=== PATIENT | male | born 1960 | race Caucasian/White ===

== ENCOUNTER 2016-12-05 20:22 | Emergency (ER) | payer BC ==
[2016-12-05] MEDS ORDERED: BUPIVACAINE 0.5% PF 30 ML VIAL SUBQ STA (21:40)
--- NOTE | 2016-12-05 21:45 | ED Physician Documentation ---
History of Present Illness - Stated complaint Stated Complaint: RIGHT HAND LACERATION - Chief complaint Chief Complaint: Laceration - History obtained from History obtained from: Patient - Additonal information Additional information: Right [id number] male who cut his hand on a boat wench and sustained a laceration contusion to the volar aspect of the right hand just proximal to MCP joint. Review of systems: For pertinent positive and negatives in the review of systems please see history of present illness. Otherwise all other systems have been reviewed and are negative. Dragon disclaimer: Parts of this medical record were created using voice recognition technology. Because of the inherent limitations of this system occasional same sounding word substitutions do occur and persist despite proofreading. Please read the document for context. Review of Systems Cardiac: denies: Chest pain / pressure, Palpitations GI: reports: Abdominal Pain, Abdominal Swelling Musculoskeletal: reports: Extremity pain, Joint pain, Extremity swelling PD PAST MEDICAL HISTORY - Past Medical History Past Medical History: No - Past Surgical History Past Surgical History: Yes - Allergies Allergies/Adverse Reactions: Allergies Allergy/AdvReac Type Severity Reaction Status Date / Time sulfamethoxazole Allergy Unknown Verified 12/05/16 20:32 [From Bactrim] trimethoprim [From Bactrim] Allergy Unknown Verified 12/05/16 20:32 - Social History Does the pt smoke?: No Smoking Status: Never smoker Does the pt drink ETOH?: Yes Does the pt have substance abuse?: No - Immunizations Immunizations are current?: Yes - POLST Patient has POLST: No PD ED PE NORMAL - General General: Alert and oriented X 3, No acute distress, Well developed/nourished - Extremities Extremities: Other (Patient is a well-appearing 56-year-old male who presents with a complaint of pain and injury to the right hand. On examination he has a 2.5 cm laceration shaped like a W on the volar aspect just proximal to the metacarpophalangeal joint of the fifth finger. Tendon function is Is normal on testing of the superficialis and profundus testing. The distal tip of the finger appears normal there is no obvious bony abnormality seen.) Results - Vitals Vitals: Vital Signs - 24 hr 12/05/16 12/05/16 20:29 22:48 Temperature 36.0 C L 36.6 C Heart Rate 60 60 Respiratory 12 12 Rate Blood Pressure 145/96 H 140/86 H O2 Saturation 94 95 Oxygen O2 Source Room air PD MEDICAL DECISION MAKING - ED course ED course: Well-appearing man with a 2-1/2 cm laceration to the right volar hand. The hand was inspected neurovascularly it is intact. Radiographs showed no evidence of bony fracture or foreign body. The wound was anesthetized with 8 cc of Sensorcaine. It was then irrigated with a 18-gauge needle, syringe under pressure. It was closed using 7 single interrupted sutures of 4.0 Ethicon. His good approximation and hemostasis. The patient's tetanus is up-to-date at this point in time will be discharged home in improved condition. Disposition: To home Clinical impression 2.5 cm laceration right volar aspect of hand status post suture closure Departure - Departure Disposition: 01 Home, Self Care Clinical Impression: Laceration Condition: Good Instructions: ED Laceration Hand Follow-Up: Lucas Orlando MD [Primary Care Provider] -
[2016-12-05] MEDS ORDERED: BUPIVACAINE 0.5% PF 30 ML VIAL ONE (21:46)
--- NOTE | 2016-12-05 22:23 | XRAY Preliminary Report ---
Exam: XR Hand 3 View RT IMPRESSION: 1. No radiopaque foreign bodies. Soft tissue defect in the medial right hand. 2. No fracture. Normal alignment. [facility] SITE ID: [id number]
[2016-12-05 22:49] VITALS: BP 140/86
--- NOTE | 2016-12-05 22:59 | XRAY Report ---
EXAM: RIGHT HAND RADIOGRAPHY EXAM DATE: 12/05/2016 10:16 PM. CLINICAL HISTORY: Injury to 5th metacarpal. COMPARISON: None. TECHNIQUE: 3 views. FINDINGS: Bones: Normal. No fractures or bone lesions. Joints: Normal. No subluxations. Soft Tissues: Possible soft tissue defect in the medial volar aspect of the right hand. No radiopaque foreign bodies. IMPRESSION: 1. No radiopaque foreign bodies. Soft tissue defect in the medial right hand. 2. No fracture. Normal alignment. [facility] Referring Provider Line: [phone] SITE ID: [id number]
== END 2016-12-05 23:38 | disposition home or self-care (01) ==
LOC: ED 20:22
DX: S61.412A Laceration without foreign body of left hand, initial encounter (principal); W27.8XXA Contact with other nonpowered hand tool, initial encounter
CPT/HCPCS: 12001; 99282; 99283